=== PATIENT | female | born 1990 | race Caucasian/White ===

== ENCOUNTER 2025-01-28 23:01 | Emergency (ER) | payer BC ==
[~2025-01-28] VITALS: Ht 157.5 cm; Wt 108.0 kg
[2025-01-28 23:20] VITALS: O2SAT 98
[2025-01-28 23:38] LABS: BASOPHILS % 0.3 % (0.0-2.0); EOSINOPHILS % 4.3 % (0.0-5.0); HEMATOCRIT. 42.1 % (36.0-48.0); HEMOGLOBIN. 13.9 g/dL (12.0-16.0); LYMPHOCYTES % 19.7 % (20.0-50.0); MEAN PLATELET VOLUME 8.3 fl (7.4-10.4); MONOCYTES % 7.3 % (2.0-8.0); NEUTROPHILS % 68.4 % (40.0-76.0); PLATELET 298 x1000/uL (130-400); RED BLOOD CELL COUNT 4.86 mill/uL (4.2-5.4); RED CELL DISTRIBUTION WIDTH 13.6 % (11.6-14.6)
[2025-01-28 23:51] LABS: CREATININE 0.9 mg/dL (0.6-1.0); UREA NITROGEN BLOOD 10 mg/dL (9-23)
[2025-01-28 23:52] LABS: TROPONIN I HIGH SENSITIVITY < 4 ng/L (3.0-34)
[2025-01-29 00:22] LABS: HCG SCREEN NEGATIVE
[2025-01-29] MEDS ORDERED: FAMO20TA8 MT (00:38)
[2025-01-29] MEDS: MAGNESIUM/ALUMINUM HYDROXIDE/SIMETHICONE 30ML UDC PO ONE (00:49)
[2025-01-29] MEDS: ONDANSETRON 4MG ODT PO ONE (00:49)
[2025-01-29 01:16] VITALS: BP 115/68; PULSE 78; RESP 13; TEMP 36.7; O2SAT 99
== END 2025-01-29 01:23 | disposition home or self-care (01) ==
LOC: ER 23:01
DX: K29.70 Gastritis, unspecified, without bleeding (principal); J45.909 Unspecified asthma, uncomplicated
CPT/HCPCS: 99285; 71045; 80048; 84703; 85025; 84484; 36415; 93005; Q0162